=== PATIENT | female | born 1985 | race Caucasian/White ===

== ENCOUNTER 2017-12-17 22:33 | Observation (INO) | payer MEDICAID ==
[2017-12-17] MEDS: NORMAL SALINE 1000 ML 1,000 ML IV PRN ×2 (23:00→23:47)
--- NOTE | 2017-12-17 23:13 | ER Document Report ---
ED General - General Chief Complaint: Abdominal Pain Stated Complaint: ABDOMINAL PAIN Time Seen by Provider: 12/17/17 23:13 Mode of Arrival: Ambulatory Information source: Patient Notes: 32-year-old lady with past medical history of kidney stones who presented today for evaluation of fever, left flank pain, right upper quadrant pain associated with nausea as well as vomiting. Her symptoms started approximately 2 days ago. Patient reported urinary burning and frequency prior to her symptoms. Patient did not notice any hematuria. Patient is allergic to penicillin. Pain is achy, constant, localized to the left flank as well as right upper quadrant, severity of symptoms a 6 out of 10. Patient took Motrin with improvement of her fever but not pain. TRAVEL OUTSIDE OF THE [place] IN LAST 30 DAYS: No - Related Data Allergies/Adverse Reactions: Penicillins Allergy (Verified 12/17/17 22:37) Past Medical History - General Information source: Patient - Social History Smoking Status: Never Smoker Frequency of alcohol use: Occasional Drug Abuse: None Family History: None Patient has suicidal ideation: No Patient has homicidal ideation: No Renal/ Medical History: Denies: Hx Peritoneal Dialysis Review of Systems - Review of Systems Notes: REVIEW OF SYSTEMS: CONSTITUTIONAL: + Fevers, + chills EENT: -eye pain, -difficulty swallowing, -nasal congestion CARDIOVASCULAR: -chest pain, -syncope. RESPIRATORY: -cough, -SOB GASTROINTESTINAL: + Abdominal pain, + nausea, + vomiting, -diarrhea GENITOURINARY: -dysuria, -hematuria MUSCULOSKELETAL: + Back pain, -neck pain SKIN: -rash or skin lesions. HEMATOLOGIC: -easy bruising or bleeding. LYMPHATIC: -swollen, enlarged glands. NEUROLOGICAL: -altered mental status or loss of consciousness, -headache, - neurologic symptoms PSYCHIATRIC: -anxiety, -depression. ALL OTHER SYSTEMS REVIEWED AND NEGATIVE. Physical Exam - Vital signs Vitals: Temp Pulse Resp BP Pulse Ox 98.4 F 147 H 20 134/83 H 95 12/17/17 22:49 12/17/17 22:49 12/17/17 22:49 12/17/17 22:49 12/17/17 22:49 - Notes Notes: Reviewed vital signs and nursing note as charted by RN. CONSTITUTIONAL: Alert and oriented and responds appropriately to questions HEAD: Normocephalic; atraumatic EYES: PERRL; Conjunctivae clear, sclerae non-icteric ENT: normal nose; no rhinorrhea; moist mucous membranes; pharynx without lesions noted NECK: Supple without meningismus; non-tender; no cervical lymphadenopathy, no masses CARD: Tachycardia; no murmurs, no clicks, no rubs, no gallops; symmetric distal pulses RESP: Normal chest excursion without splinting or tachypnea; breath sounds clear and equal bilaterally ABD/GI: Normal bowel sounds; non-distended; soft, tenderness to palpation of her right upper quadrant as well as left CVA tenderness BACK: The back appears normal and is non-tender to palpation, left CVA tenderness EXT: Normal ROM in all joints; non-tender to palpation; no cyanosis, no effusions, no edema SKIN: Skin feels warm and clammy NEURO: Cranial nerves 3-12 intact. Motor strength 5/5 bilaterally. Sensation intact to touch bilaterally. No pronator drift. Finger to nose intact bilaterally PSYCH: The patient's mood and manner are appropriate. Grooming and personal hygiene are appropriate. Course - Re-evaluation Re-evalutation: 32 here for evaluation of nausea, vomiting as well as fevers and left flank pain and right upper quadrant pain Differential diagnoses include sepsis, infected stone, acute cystitis, pyelonephritis, possible acute cholecystitis given her right upper quadrant abdominal pain We will obtain basic lab work including CBC, CMP, blood cultures, lactic acid level We will give patient IV fluids 2 L, IV Levaquin CT abdomen pelvis without contrast Pain control with Stendal Reassess patient 12/17/17 23:42 Patient has acute leukocytosis as well as hyperglycemia Urinalysis did not reveal any evidence of acute pyelonephritis or cystitis, patient has hematuria Given her persistent leukocytosis concern for possible acute cholecystitis given that she had right upper quadrant abdominal pain, therefore will obtain imaging of her gallbladder and liver 12/18/17 04:31 Gallbladder did not reveal any acute evidence of cholecystitis, no biliary dilatation or gallbladder wall thickening, otherwise normal ultrasound Upon reassessment of the patient she appears to be slightly tachycardic as well as complains of persistent nausea Patient does not feel comfortable going home I have offered patient admission and she agreed I have gotten in contact with hospitalist on-call, Dr. Crump, he agree with admission for observation Admit patient - Vital Signs Vital signs: Temp Pulse Resp BP Pulse Ox 98.4 F 101 H 18 138/73 H 100 05/22/18 22:49 12/18/17 02:00 12/18/17 02:00 12/18/17 02:00 12/18/17 02:00 - Laboratory Result Diagrams: 12/17/17 23:10 12/17/17 23:10 Laboratory results interpreted by me: 12/17/17 12/17/17 12/18/17 23:10 23:10 00:15 WBC 18.9 H Seg Neutrophils % 89.0 H Lymphocytes % 6.8 L Absolute Neutrophils 16.9 H Glucose 157 H AST 39 H Urine Blood SMALL H Ur Leukocyte Esterase TRACE H Critical Care Note - Critical Care Note Comments: Critical Care Time: 35 minutes Critical care provider statement: Critical care time was exclusive of: Separately billable procedures and treating other patients and teaching time Critical care was time spent personally by me on the following activities: Blood draw for specimens, development of treatment plan with patient or surrogate, evaluation of patient's response to treatment, examination of patient , obtaining history from patient or surrogate, ordering and performing treatments and interventions, ordering and review of laboratory studies, ordering and review of radiographic studies, pulse oximetry, re-evaluation of patient's condition and review of old charts I assumed direction of critical care for this patient from another provider in my specialty: no Discharge - Discharge Clinical Impression: Sepsis Qualifiers: Sepsis type: sepsis due to unspecified organism Qualified Code(s): A41.9 - Sepsis, unspecified organism Abdominal pain Qualifiers: Abdominal location: generalized Qualified Code(s): R10.84 - Generalized abdominal pain Fever Qualifiers: Fever type: unspecified Qualified Code(s): R50.9 - Fever, unspecified Condition: Stable Admitting Provider: Hospitalist Unit Admitted: Telemetry Referrals: EDYTA COTTON FNP-C [Primary Care Provider] - Follow up as needed
[2017-12-17] MEDS ORDERED: LEVOFLOXACIN 750 MG/D5W RTU 750 MG/150 ML RTUPB IV ONE (23:15)
[2017-12-17] MEDS ORDERED: HYDROCODONE/ACETAMINOPHEN 5-325 MG TABLET PO ONE (23:27)
[2017-12-17 23:28] LABS: ABSOLUTE EOSINOPHILS # (AUTO) 0.1 10^3/uL (0.0-0.6); ABSOLUTE LYMPHOCYTES (AUTO) 1.3 10^3/uL (0.5-4.7); ABSOLUTE MONOCYTES (AUTO) 0.7 10^3/uL (0.1-1.4); ABSOLUTE NEUT (AUTO) 16.9 10^3/uL (1.7-8.2); BASOPHILS % (AUTO) 0.3 % (0-2); EOSINOPHILS % (AUTO) 0.4 % (0-6); HEMATOCRIT 43.3 % (36.0-47.0); HEMOGLOBIN 14.7 g/dL (12.0-15.5); LYMPHOCYTES % (AUTO) 6.8 % (13-45); MEAN CORPUSCULAR HEMOGLOBIN 31.1 pg (27.0-33.4); MEAN CORPUSCULAR HGB CONC 33.9 g/dL (32.0-36.0); MEAN CORPUSCULAR VOLUME 92 fl (80-97); MONOCYTES % (AUTO) 3.5 % (3-13); PLATELET COUNT 364 10^3/uL (150-450); RED BLOOD COUNT 4.72 10^6/uL (3.72-5.28); RED CELL DISTRIBUTION WIDTH 13.3 % (11.5-14.0); TOTAL CELLS COUNTED % (AUTO) 100 %; WHITE BLOOD COUNT 18.9 10^3/uL (4.0-10.5)
[2017-12-17 23:35] LABS: ALANINE AMINOTRANSFERASE 35 U/L (9-52); ALBUMIN 4.5 g/dL (3.5-5.0); ALKALINE PHOSPHATASE 91 U/L (38-126); ANION GAP 13 (5-19); ASPARTATE AMINO TRANSFERASE 39 U/L (14-36); BILIRUBIN,DIRECT 0.4 mg/dL (0.0-0.4); BILIRUBIN,TOTAL 0.6 mg/dL (0.2-1.3); BLOOD UREA NITROGEN 12 mg/dL (7-20); CALCIUM 9.6 mg/dL (8.4-10.2); CARBON DIOXIDE 24 mmol/L (22-30); CHLORIDE 104 mmol/L (98-107); GLUCOSE 157 mg/dL (75-110); POTASSIUM 4.1 mmol/L (3.6-5.0); SODIUM 140.5 mmol/L (137-145); TOTAL PROTEIN 8.1 g/dL (6.3-8.2)
[2017-12-18 00:29] LABS: APPEARANCE,URINE CLEAR; BILIRUBIN,URINE NEGATIVE (NEGATIVE); COLOR,URINE STRAW; GLUCOSE, URINE NEGATIVE (NEGATIVE); KETONES,URINE NEGATIVE (NEGATIVE); LEUKOCYTE ESTERASE,URINE TRACE (NEGATIVE); NITRITE,URINE NEGATIVE (NEGATIVE); PROTEIN,URINE NEGATIVE (NEGATIVE); URINE SPECIFIC GRAVITY 1.008; UROBILINOGEN,URINE NEGATIVE mg/dL (<2.0)
--- NOTE | 2017-12-18 02:04 | RADIOLOGY REPORT (SQ) ---
EXAM DESCRIPTION: CT ABDOMEN PELVIS WITHOUT IV CONTRAST CLINICAL HISTORY: 32 years Female, kidney stone Comparison: None. Technique: No contrast. Coronal and sagittal reformat. This exam was performed according to our departmental dose-optimization program, which includes automated exposure control, adjustment of the mA and/or kV according to patient size and/or use of iterative reconstruction technique.[facility]: Dose Right [facility]: CareDose [facility]: Dose Right [facility]: Teradose 4D [facility]: Stakeforce LIMITATIONS: None. Findings: Moderate hepatic steatosis. 0.2 cm uncomplicated right renal stone. Normal appendix. Small L5-S1 disc bulge. Unenhanced lower thorax, abdominopelvic structures, and musculoskeleton appear otherwise grossly unremarkable. Impression: No acute findings. Moderate hepatic steatosis. 0.2 cm uncomplicated right renal stone.
--- NOTE | 2017-12-18 02:47 | RADIOLOGY REPORT (SQ) ---
EXAM DESCRIPTION: US ABDOMEN LIMITED CLINICAL HISTORY: 32 years Female, RUQ pain, acute sylvia Comparison: CT, same day LIMITATIONS: None. FINDINGS: Gallbladder, negative sonographic Field's test, moderate hepatic steatosis, a 0.4-cm diameter common bile duct, no intrahepatic ductal dilation, 11-cm right kidney, partially obscured pancreas, visualized vasculature/abdominal aorta, and no significant ascites appear otherwise unremarkable. IMPRESSION: No acute findings. Hepatic steatosis.
[2017-12-18] MEDS ORDERED: NORMAL SALINE 1000 ML 1,000 ML IV ONE (04:02)
[2017-12-18] MEDS ORDERED: OXYCODONE HCL IR 5 MG TABLET PO ONE (04:02)
[2017-12-18] MEDS ORDERED: MAG HYDROX/AL HYDROX/SIMETH SUSP 30 ML UDCUP PO PRN (04:30)
[2017-12-18] MEDS ORDERED: IPRATROPIUM/ALBUTEROL 0.5-2.5 MG/3 ML AMPUL NEB PRN (04:30)
[2017-12-18] MEDS ORDERED: LACTULOSE SYRUP 20 GM/30 ML UDCUP PO ONE (04:30)
[2017-12-18] MEDS ORDERED: MAGNESIUM HYDROXIDE SUSP 30 ML UDCUP PO PRN (04:30)
[2017-12-18] MEDS ORDERED: METRONIDAZOLE 500 MG TABLET PO ONE (05:00)
[2017-12-18 05:36] LABS: ALANINE AMINOTRANSFERASE 34 U/L (9-52); ALBUMIN 3.3 g/dL (3.5-5.0); ALKALINE PHOSPHATASE 60 U/L (38-126); ANION GAP 10 (5-19); ASPARTATE AMINO TRANSFERASE 22 U/L (14-36); BILIRUBIN,DIRECT 0.3 mg/dL (0.0-0.4); BILIRUBIN,TOTAL 0.4 mg/dL (0.2-1.3); BLOOD UREA NITROGEN 11 mg/dL (7-20); CALCIUM 8.3 mg/dL (8.4-10.2); CARBON DIOXIDE 24 mmol/L (22-30); CHLORIDE 109 mmol/L (98-107); GLUCOSE 103 mg/dL (75-110); LIPASE 60.6 U/L (23-300); POTASSIUM 4.1 mmol/L (3.6-5.0); SODIUM 143.3 mmol/L (137-145)
[2017-12-18] MEDS: HEPARIN SOD (PORCINE) 5,000 UNIT/ML 1 ML SYRINGE SUBCUT SCH ×3 (06:22→22:04)
[2017-12-18] MEDS: NORMAL SALINE 1000 ML 1,000 ML IV SCH ×2 (06:46→15:23)
--- NOTE | 2017-12-18 06:56 | PDOC H&P ---
History of Present Illness Admission Date/PCP: 12/18/17 04:48 FRANCISCO JAVIER FERGUSONC Patient complains of: Abdominal pain History of Present Illness: KRUNAL PATRICK is a 32 year old female with a past medical history of hepatic steatosis, Morbid obesity and nephrolithiasis. Patient presents with 48 hours of left-sided abdominal pain which radiated to the groin then developed right upper quadrant pain associated bloating, flatus, nausea and vomiting 1 of gastric content. Patient developed a fever of 102.5 prompting evaluation emergency room. Her workup is notable for leukocytosis of 19,000, unremarkable LFTs, noncontrasted CT showing moderate hepatic steatosis, 0.2 cm uncomplicated right renal stone, a normal appendix and moderate fecal retention. She is treated empirically with IV fluid and Levaquin then referred to the hospitalist for admission. Patient denies dysuria or back pain Social History Information Source: Patient Lives with: Family Smoking Status: Never Smoker Frequency of Alcohol Use: None Hx Recreational Drug Use: No Drugs: None Hx Prescription Drug Abuse: No - Advance Directive Resuscitation Status: Full Code Family History Family History: None Parental Family History Reviewed: Yes Children Family History Reviewed: Yes Sibling(s) Family History Reviewed.: Yes Medication/Allergy Allergies/Adverse Reactions: Penicillins Allergy (Verified 12/17/17 22:37) Review of Systems Constitutional: ABSENT: chills, fever(s), headache(s), weight gain, weight loss Eyes: ABSENT: visual disturbances Ears: ABSENT: hearing changes Cardiovascular: ABSENT: chest pain, dyspnea on exertion, edema, orthropnea, palpitations Respiratory: ABSENT: cough, hemoptysis Gastrointestinal: ABSENT: abdominal pain, constipation, diarrhea, hematemesis, hematochezia, nausea, vomiting Genitourinary: ABSENT: dysuria, hematuria Musculoskeletal: ABSENT: joint swelling Integumentary: ABSENT: rash, wounds Neurological: ABSENT: abnormal gait, abnormal speech, confusion, dizziness, focal weakness, syncope Psychiatric: ABSENT: anxiety, depression, homidical ideation, suicidal ideation Endocrine: ABSENT: cold intolerance, heat intolerance, polydipsia, polyuria Hematologic/Lymphatic: ABSENT: easy bleeding, easy bruising Physical Exam Vital Signs: Temp Pulse Resp BP Pulse Ox 98.0 F 98 16 117/78 99 12/18/17 05:52 12/18/17 05:52 12/18/17 05:52 12/18/17 05:52 12/18/17 05:52 Intake & Output 12/16/17 12/17/17 12/18/17 11:59 11:59 11:59 Weight 120.9 kg General appearance: PRESENT: no acute distress, well-developed, well-nourished Head exam: PRESENT: atraumatic, normocephalic Eye exam: PRESENT: conjunctiva pink, EOMI, PERRLA. ABSENT: scleral icterus Ear exam: PRESENT: normal external ear exam Mouth exam: PRESENT: moist, tongue midline Neck exam: ABSENT: carotid bruit, JVD, lymphadenopathy, thyromegaly Respiratory exam: PRESENT: clear to auscultation tan. ABSENT: rales, rhonchi, wheezes Cardiovascular exam: PRESENT: RRR. ABSENT: diastolic murmur, rubs, systolic murmur Pulses: PRESENT: normal dorsalis pedis pul Vascular exam: PRESENT: normal capillary refill GI/Abdominal exam: PRESENT: diminished bowel sounds, distended, hypoactive bowel sounds, normal bowel sounds, soft, tenderness - Diffuse abdominal pain without guarding. ABSENT: firm, guarding, mass, organolmegaly, rebound Rectal exam: PRESENT: deferred Extremities exam: PRESENT: full ROM. ABSENT: calf tenderness, clubbing, pedal edema Neurological exam: PRESENT: alert, awake, oriented to person, oriented to place , oriented to time, oriented to situation, CN II-XII grossly intact. ABSENT: motor sensory deficit Psychiatric exam: PRESENT: appropriate affect, normal mood. ABSENT: homicidal ideation, suicidal ideation Skin exam: PRESENT: dry, intact, warm. ABSENT: cyanosis, rash Results Laboratory Results: 12/18/17 05:10 12/18/17 12/18/17 05:10 05:10 Sodium 143.3 Potassium 4.1 Chloride 109 H Carbon Dioxide 24 Anion Gap 10 BUN 11 Creatinine 0.54 Est GFR ( Amer) > 60 Est GFR (Non-Af Amer) > 60 Glucose 103 Lactic Acid 0.8 Calcium 8.3 L Total Bilirubin 0.4 AST 22 ALT 34 Alkaline Phosphatase 60 Total Protein 6.0 L Albumin 3.3 L Lipase 60.6 Impressions: Abdomen Ultrasound 12/18/17 00:40 IMPRESSION: No acute findings. Hepatic steatosis. Assessment & Plan - Diagnosis (1) Abdominal pain Qualifiers: Abdominal location: generalized Qualified Code(s): R10.84 - Generalized abdominal pain Is this a current diagnosis for this admission?: Yes Plan: Unclear patient complains of abdominal pain associated with flatus, fecal impaction versus cholecystitis versus early diverticulitis. Bowel rest, empiric antibiotics, follow-up CBC and LFTs. Consider surgical consult (2) Fever Qualifiers: Fever type: unspecified Qualified Code(s): R50.9 - Fever, unspecified Is this a current diagnosis for this admission?: Yes Plan: See #1, Tylenol as needed
[2017-12-18] MEDS ORDERED: ONDANSETRON HCL INJ/PF 4 MG/2 ML SDV IV PRN (08:42)
[2017-12-18] MEDS ORDERED: ONDANSETRON HCL INJ/PF 4 MG/2 ML SDV ONE (08:51)
[2017-12-18 09:00] LABS: ABSOLUTE EOSINOPHILS # (AUTO) 0.1 10^3/uL (0.0-0.6); ABSOLUTE MONOCYTES (AUTO) 0.9 10^3/uL (0.1-1.4); ABSOLUTE NEUT (AUTO) 11.2 10^3/uL (1.7-8.2); BASOPHILS % (AUTO) 0.3 % (0-2); EOSINOPHILS % (AUTO) 0.5 % (0-6); HEMATOCRIT 38.3 % (36.0-47.0); HEMOGLOBIN 12.8 g/dL (12.0-15.5); LYMPHOCYTES % (AUTO) 14.1 % (13-45); MEAN CORPUSCULAR HEMOGLOBIN 30.9 pg (27.0-33.4); MEAN CORPUSCULAR HGB CONC 33.4 g/dL (32.0-36.0); MEAN CORPUSCULAR VOLUME 93 fl (80-97); MONOCYTES % (AUTO) 6.3 % (3-13); PLATELET COUNT 292 10^3/uL (150-450); RED BLOOD COUNT 4.14 10^6/uL (3.72-5.28); RED CELL DISTRIBUTION WIDTH 13.3 % (11.5-14.0); SEGMENTED NEUTROPHILS % (AUTO) 78.8 % (42-78); TOTAL CELLS COUNTED % (AUTO) 100 %; WHITE BLOOD COUNT 14.2 10^3/uL (4.0-10.5)
[2017-12-18] MEDS ORDERED: ONDANSETRON 4 MG TAB.RAPDIS PO PRN ×2 (09:05→09:30)
[2017-12-18 09:34] LABS: ALANINE AMINOTRANSFERASE 34 U/L (9-52); ALBUMIN 3.6 g/dL (3.5-5.0); ALKALINE PHOSPHATASE 69 U/L (38-126); ANION GAP 13 (5-19); ASPARTATE AMINO TRANSFERASE 22 U/L (14-36); BILIRUBIN,DIRECT 0.2 mg/dL (0.0-0.4); BILIRUBIN,TOTAL 0.4 mg/dL (0.2-1.3); BLOOD UREA NITROGEN 9 mg/dL (7-20); CALCIUM 8.5 mg/dL (8.4-10.2); CARBON DIOXIDE 19 mmol/L (22-30); CHLORIDE 108 mmol/L (98-107); GLUCOSE 113 mg/dL (75-110); POTASSIUM 3.8 mmol/L (3.6-5.0); TOTAL PROTEIN 6.4 g/dL (6.3-8.2)
[2017-12-18] MEDS: CIPROFLOXACIN 400 MG/D5W RTU 400 MG/200 ML RTUPB IV SCH ×2 (10:22→22:04)
[2017-12-18] MEDS: METRONIDAZOLE 500 MG TABLET PO SCH ×2 (12:41→17:42)
[2017-12-18] MEDS: ACETAMINOPHEN 325 MG TABLET PO PRN ×2 (12:41→22:04)
[2017-12-18] MEDS: LACTULOSE SYRUP 20 GM/30 ML UDCUP PO SCH ×2 (15:23→22:04)
--- NOTE | 2017-12-18 19:16 | PDOC PROGRESS REPORT ---
Subjective Progress Note for:: 12/18/17 Subjective:: I the patient states that she is feeling a little better this afternoon. She was nauseated and had an episode of vomiting this morning. She states her abdominal pain is improving but she has not yet had a bowel movement. She is passing gas. She has had no fever or chills. No chest pain or heart palpitations. She does state that she has flank pain in her kidney area every time she urinates. She states it is quite severe. Reason For Visit: ABD PAIN COLITIS Physical Exam Vital Signs: Temp Pulse Resp BP Pulse Ox 98.1 F 104 H 16 126/63 H 95 12/18/17 16:00 12/18/17 18:12 12/18/17 18:12 12/18/17 16:00 12/18/17 18:12 Intake & Output 12/17/17 12/18/17 12/19/17 06:59 06:59 06:59 Intake Total 1764 Output Total 2800 Balance -1036 Weight 120.9 kg General appearance: PRESENT: no acute distress, morbidly obese, well-developed, well-nourished Head exam: PRESENT: atraumatic, normocephalic Mouth exam: PRESENT: moist, tongue midline Neck exam: ABSENT: carotid bruit, JVD, lymphadenopathy, thyromegaly Respiratory exam: PRESENT: clear to auscultation tan. ABSENT: rales, rhonchi, wheezes Cardiovascular exam: PRESENT: RRR. ABSENT: diastolic murmur, rubs, systolic murmur Pulses: PRESENT: normal dorsalis pedis pul GI/Abdominal exam: PRESENT: hypoactive bowel sounds, soft, tenderness. ABSENT: distended, guarding, mass, organolmegaly, rebound Rectal exam: PRESENT: deferred Extremities exam: PRESENT: full ROM. ABSENT: calf tenderness, clubbing, pedal edema Musculoskeletal exam: PRESENT: ambulatory Neurological exam: PRESENT: alert, awake, oriented to person, oriented to place , oriented to time, oriented to situation, CN II-XII grossly intact. ABSENT: motor sensory deficit Psychiatric exam: PRESENT: appropriate affect, normal mood. ABSENT: homicidal ideation, suicidal ideation Skin exam: PRESENT: dry, intact, warm. ABSENT: cyanosis, rash Results Laboratory Results: 12/18/17 08:45 12/18/17 08:45 12/18/17 12/18/17 12/18/17 05:10 05:10 08:45 WBC 14.2 H RBC 4.14 Hgb 12.8 Hct 38.3 MCV 93 MCH 30.9 MCHC 33.4 RDW 13.3 Plt Count 292 Seg Neutrophils % 78.8 H Lymphocytes % 14.1 Monocytes % 6.3 Eosinophils % 0.5 Basophils % 0.3 Absolute Neutrophils 11.2 H Absolute Lymphocytes 2.0 Absolute Monocytes 0.9 Absolute Eosinophils 0.1 Absolute Basophils 0.0 Sodium 143.3 Potassium 4.1 Chloride 109 H Carbon Dioxide 24 Anion Gap 10 BUN 11 Creatinine 0.54 Est GFR ( Amer) > 60 Est GFR (Non-Af Amer) > 60 Glucose 103 Lactic Acid 0.8 Calcium 8.3 L Magnesium Total Bilirubin 0.4 AST 22 ALT 34 Alkaline Phosphatase 60 Total Protein 6.0 L Albumin 3.3 L Lipase 60.6 12/18/17 08:45 WBC RBC Hgb Hct MCV MCH MCHC RDW Plt Count Seg Neutrophils % Lymphocytes % Monocytes % Eosinophils % Basophils % Absolute Neutrophils Absolute Lymphocytes Absolute Monocytes Absolute Eosinophils Absolute Basophils Sodium 140.0 Potassium 3.8 Chloride 108 H Carbon Dioxide 19 L Anion Gap 13 BUN 9 Creatinine 0.46 L Est GFR ( Amer) > 60 Est GFR (Non-Af Amer) > 60 Glucose 113 H Lactic Acid Calcium 8.5 Magnesium 1.7 Total Bilirubin 0.4 AST 22 ALT 34 Alkaline Phosphatase 69 Total Protein 6.4 Albumin 3.6 Lipase Impressions: Abdomen Ultrasound 12/18/17 00:40 IMPRESSION: No acute findings. Hepatic steatosis. Assessment & Plan - Diagnosis (1) Constipation Is this a current diagnosis for this admission?: Yes Plan: Continue lactulose. She has not yet had a bowel movement. (2) Abdominal pain Is this a current diagnosis for this admission?: Yes Plan: She is being empirically treated for possible colitis or diverticulitis. She states her abdominal pain has improved. Her abdominal pain could be due to constipation. She also has a history of kidney stones in the past. She does have flank pain when she urinates. There is no blood in her urine. CT scan of the abdomen and pelvis did reveal a 0.2 mm uncomplicated renal stone. (3) Leukocytosis Is this a current diagnosis for this admission?: Yes Plan: She will have a CBC drawn in the morning. Possibly reactive to her whole situation (4) Morbid obesity Is this a current diagnosis for this admission?: Yes Plan: Certainly she would benefit from weight loss. Dietary discretion is advised. Her BMI is 50.4 - Time Time Spent with patient: 25-34 minutes - Inpatient Certification Medical Necessity: Other - Inpatient hospitalization remains necessary. We will keep the patient in the hospital on parenteral antibiotics. We will see if we can get her to have a bowel movement. Timing of disposition will be determined by her clinical course
[2017-12-19] MEDS: METRONIDAZOLE 500 MG TABLET PO SCH ×4 (01:11→17:47)
[2017-12-19 05:01] LABS: ABSOLUTE BASOPHILS # (AUTO) 0.1 10^3/uL (0.0-0.2); ABSOLUTE EOSINOPHILS # (AUTO) 0.2 10^3/uL (0.0-0.6); ABSOLUTE LYMPHOCYTES (AUTO) 2.6 10^3/uL (0.5-4.7); ABSOLUTE MONOCYTES (AUTO) 0.8 10^3/uL (0.1-1.4); BASOPHILS % (AUTO) 0.6 % (0-2); EOSINOPHILS % (AUTO) 1.5 % (0-6); LYMPHOCYTES % (AUTO) 22.3 % (13-45); MEAN CORPUSCULAR HEMOGLOBIN 30.7 pg (27.0-33.4); MEAN CORPUSCULAR HGB CONC 33.2 g/dL (32.0-36.0); MEAN CORPUSCULAR VOLUME 93 fl (80-97); MONOCYTES % (AUTO) 6.9 % (3-13); PLATELET COUNT 284 10^3/uL (150-450); RED BLOOD COUNT 4.22 10^6/uL (3.72-5.28); RED CELL DISTRIBUTION WIDTH 13.1 % (11.5-14.0); SEGMENTED NEUTROPHILS % (AUTO) 68.7 % (42-78); TOTAL CELLS COUNTED % (AUTO) 100 %; WHITE BLOOD COUNT 11.6 10^3/uL (4.0-10.5)
[2017-12-19 05:23] LABS: ANION GAP 10 (5-19); BLOOD UREA NITROGEN 6 mg/dL (7-20); CALCIUM 8.8 mg/dL (8.4-10.2); CARBON DIOXIDE 24 mmol/L (22-30); CHLORIDE 109 mmol/L (98-107); GLUCOSE 87 mg/dL (75-110); POTASSIUM 3.9 mmol/L (3.6-5.0); SODIUM 143.3 mmol/L (137-145)
[2017-12-19] MEDS: LACTULOSE SYRUP 20 GM/30 ML UDCUP PO SCH ×2 (05:27→13:24)
[2017-12-19] MEDS: HEPARIN SOD (PORCINE) 5,000 UNIT/ML 1 ML SYRINGE SUBCUT SCH ×2 (05:28→13:38)
[2017-12-19] MEDS: ACETAMINOPHEN 325 MG TABLET PO PRN ×2 (06:46→15:48)
[2017-12-19] MEDS: CIPROFLOXACIN 400 MG/D5W RTU 400 MG/200 ML RTUPB IV SCH (09:22)
[2017-12-19 18:10] VITALS: BP 126/63
--- NOTE | 2017-12-19 18:44 | PDOC DISCHARGE SUMMARY ---
General - Admit/Disc Date/PCP Admission Date/Primary Care Provider: 12/18/17 04:48 GAGANDEEP FERGUSON-Evgeny Discharge Date: 12/19/17 - Discharge Diagnosis (1) Constipation Is this a current diagnosis for this admission?: Yes Summary: Resolved. She was given multiple doses of lactulose and finally began to have bowel movements. I recommend she taken over the counter stool softener going forward. (2) Abdominal pain Is this a current diagnosis for this admission?: Yes Summary: The patient had abdominal pain but also had a fever of 102 before she came to the hospital. CT scan of the abdomen and pelvis revealed a fatty liver but no evidence of colitis or diverticulitis. She did have a markedly elevated white blood cell count which is since resolved. She was empirically placed on IV Cipro and Flagyl. Did discuss this with her and her . We are going to complete a one-week course of therapy at discharge. If she develops further abdominal pain would recommend a GI workup. (3) Leukocytosis Is this a current diagnosis for this admission?: Yes Summary: Resolved. Of undetermined significance at this point. Possibly due to underlying infection versus reactive to severe constipation (4) Morbid obesity Is this a current diagnosis for this admission?: Yes Summary: Dietary discretion is advised. - Additional Information Resuscitation Status: Full Code Discharge Diet: Regular Discharge Activity: Activity As Tolerated, Balance Activity w/Rest, Slowly Increase Activity Prescriptions: Ondansetron [Zofran Odt 4 mg Tablet] 4 mg PO Q6HP PRN #30 tab.rapdis PRN Reason: For Nausea/Vomiting Ciprofloxacin HCl [Cipro 500 mg Tablet] 500 mg PO BID #12 tablet Metronidazole [Flagyl 500 mg Tablet] 500 mg PO Q8 #18 tablet Home Medications: Fluticasone Propionate [Flonase Nasal Bowie 50 Mcg/Bowie 16 gm] 1 spray NASL DAILY 12/18/17 Loratadine [Claritin] 10 mg PO DAILY 12/18/17 Ciprofloxacin HCl [Cipro 500 mg Tablet] 500 mg PO BID #12 tablet 12/19/17 Metronidazole [Flagyl 500 mg Tablet] 500 mg PO Q8 #18 tablet 12/19/17 Ondansetron [Zofran Odt 4 mg Tablet] 4 mg PO Q6HP PRN #30 tab.rapdis 12/19/17 History of Present Illness History of Present Illness: KRUNAL PATRICK is a 32 year old female who presented to the emergency room with abdominal pain and fever. Hospital Course Hospital Course: She was in her usual state of health but on the day of admission started feeling quite poorly. She developed worsening abdominal pain. When her got home from work that day he took her temperature and she had a temperature over 102. She was brought to the hospital for further evaluation. She had a CT scan of the abdomen and pelvis which revealed evidence of a fatty liver. No evidence of colitis or diverticulitis. She was noted to have a large stool burden throughout the colon. She also had a very small 2 mm stone in the right kidney. She did have an elevated white blood cell count of 18.9 at the time of admission. She was admitted to the hospital and empirically started on IV Cipro and Flagyl. She was treated aggressively for her constipation. Over the course of the hospitalization the patient began to improve. Her white blood cell count is almost back to normal and her abdominal pain is resolved. She has had multiple bowel movements now is feeling much improved. At this point it is felt that she can safely be discharged home with close outpatient follow-up. We will get her an appointment to follow-up with her primary care physician. Certainly this patient would benefit from losing weight and would recommend continued discussions with her to help her develop a plan that works for her. At this point maximum hospital benefits been reached. The patient will be discharged home today in stable condition. Physical Exam Vital Signs: Temp Pulse Resp BP Pulse Ox 98.2 F 87 18 126/63 H 97 12/19/17 18:18 12/19/17 18:18 12/19/17 18:18 12/19/17 18:18 12/19/17 18:18 Intake & Output 12/18/17 12/19/17 12/20/17 06:59 06:59 06:59 Intake Total 2664 968 Output Total 3575 Balance -911 968 Weight 120.9 kg 120.9 kg General appearance: PRESENT: no acute distress, morbidly obese, well-developed, well-nourished Head exam: PRESENT: atraumatic, normocephalic Eye exam: PRESENT: conjunctiva pink, EOMI, PERRLA. ABSENT: scleral icterus Ear exam: PRESENT: normal external ear exam Mouth exam: PRESENT: moist, tongue midline Neck exam: ABSENT: carotid bruit, JVD, lymphadenopathy, thyromegaly Respiratory exam: PRESENT: clear to auscultation tan. ABSENT: rales, rhonchi, wheezes Cardiovascular exam: PRESENT: RRR. ABSENT: diastolic murmur, rubs, systolic murmur Pulses: PRESENT: normal dorsalis pedis pul GI/Abdominal exam: PRESENT: normal bowel sounds, soft. ABSENT: distended, guarding, mass, organolmegaly, rebound, tenderness Rectal exam: PRESENT: deferred Extremities exam: PRESENT: full ROM. ABSENT: calf tenderness, clubbing, pedal edema Musculoskeletal exam: PRESENT: ambulatory Neurological exam: PRESENT: alert, awake, oriented to person, oriented to place , oriented to time, oriented to situation, CN II-XII grossly intact. ABSENT: motor sensory deficit Psychiatric exam: PRESENT: appropriate affect, normal mood. ABSENT: homicidal ideation, suicidal ideation Skin exam: PRESENT: dry, intact, warm. ABSENT: cyanosis, rash Results Laboratory Results: 12/19/17 03:55 12/19/17 03:55 12/19/17 12/19/17 03:55 03:55 WBC 11.6 H RBC 4.22 Hgb 13.0 Hct 39.0 MCV 93 MCH 30.7 MCHC 33.2 RDW 13.1 Plt Count 284 Seg Neutrophils % 68.7 Lymphocytes % 22.3 Monocytes % 6.9 Eosinophils % 1.5 Basophils % 0.6 Absolute Neutrophils 8.0 Absolute Lymphocytes 2.6 Absolute Monocytes 0.8 Absolute Eosinophils 0.2 Absolute Basophils 0.1 Sodium 143.3 Potassium 3.9 Chloride 109 H Carbon Dioxide 24 Anion Gap 10 BUN 6 L Creatinine 0.54 Est GFR ( Amer) > 60 Est GFR (Non-Af Amer) > 60 Glucose 87 Calcium 8.8 Impressions: Abdomen Ultrasound 12/18/17 00:40 IMPRESSION: No acute findings. Hepatic steatosis. Qualifiers - * PATIENT BEING DISCHARGED WITH ANY OF THE FOLLOWING DIAGNOSIS: No Plan Time Spent: Greater than 30 Minutes
== END 2017-12-19 18:28 | disposition home or self-care (01) ==
LOC: ER 22:33 → EH 12-18 04:48 → 4N 12-18 05:49
PROVIDERS: ADMIT Internal Medicine; ATTEND Internal Medicine
DX: R10.84 Generalized abdominal pain (principal); K59.00 Constipation, unspecified; R50.9 Fever, unspecified; D72.829 Elevated white blood cell count, unspecified; E66.01 Morbid (severe) obesity due to excess calories; Z68.43 Body mass index [BMI] 50.0-59.9, adult; K76.0 Fatty (change of) liver, not elsewhere classified; N20.0 Calculus of kidney; R11.2 Nausea with vomiting, unspecified; R31.9 Hematuria, unspecified
CPT/HCPCS: 99291; 96361; 96365; 36415 ×3; 87040 ×2; 87086; 83690; 83735; 85025 ×3; 81025; 80076; 80048 ×2; 80053 ×2; 81001; 83605 ×2; 76705; 74176; G0378 ×3; J3490 ×7; J1644 ×2; J2405; J7030 ×2; J0744 ×2; J1956

== ENCOUNTER 2018-01-13 09:20 | Day surgery (SDC) | payer MEDICAID ==
[~2018-01-13 09:20] MED LIST: PROPOFOL INJ 200 MG/20 ML VIAL IV ONE
[2018-01-13 10:46] VITALS: BP 107/68
--- NOTE | 2018-01-13 12:02 | Operative Report ---
Operative Report DATE OF SURGERY: 01/13/18 Operative Report: The risks, benefits and alternatives of the procedure including risk of bleeding , perforation requiring surgery are explained to the patient in detail and informed consent was obtained. Patient is taken back to the endoscopy suite and placed in the left, lateral decubital position. Timeout was called. Propofol medications administered. A rectal examination is done which did not reveal any masses, tears or fissures. An Olympus video scope was inserted into the patient's rectum. The scope was then carefully advanced all the way to the cecum. The cecum was identified by the usual anatomical landmarks including the ileocecal valve as well as the appendiceal office. Photodocumentation was obtained. The scope was then sequentially pulled back via the various segments of the colon including the ascending colon, hepatic flexure, transverse colon, splenic flexure, descending colon and finally to the rectosigmoid portions of the colon. Retroflexion maneuver was performed. Prep was good. The risks benefits and alternatives of the procedure explained to the patient in detail and informed consent is obtained.A GIF Olympus video scope was inserted into the patient's mouth and hypopharynx ,the esophagus is identified intubated and insufflated, the scope was then advanced through the esophagus stomach and duodenum, retroflexion maneuver is done, the esophagus stomach and first and second portions of the duodenum examined PREOPERATIVE DIAGNOSIS: Abdominal pain rule out Crohn's disease. GERD, dyspepsia POSTOPERATIVE DIAGNOSIS: Terminal ileitis status post biopsy rule out Crohn's disease. Internal hemorrhoids. Gastritis status post biopsy rule out Helicobacter pylori OPERATION: Colonoscopy with biopsy. EGD with biopsy SURGEON: NELIDA KOTHARI ANESTHESIA: LMAC TISSUE REMOVED OR ALTERED: As noted above. COMPLICATIONS: None. ESTIMATED BLOOD LOSS: None. INTRAOPERATIVE FINDINGS: As noted above. PROCEDURE: Patient tolerated the procedure well. No immediate postprocedure complications are noted. Patient discharged in good condition. Discharge date 01/13/2018. Discharge diet: Regular. Discharge activity: Regular. 2-3-week follow-up to discuss findings. Patient is instructed to call the office or proceed to the emergency room should there be any further problems or questions. We will wait on the pathology.
== END 2018-01-13 10:45 | disposition home or self-care (01) ==
LOC: END 09:20
PROVIDERS: ATTEND Internal Medicine Gastroenterology
DX: K29.50 Unspecified chronic gastritis without bleeding (principal); K52.9 Noninfective gastroenteritis and colitis, unspecified; K64.8 Other hemorrhoids; K21.9 Gastro-esophageal reflux disease without esophagitis; R73.03 Prediabetes; E78.2 Mixed hyperlipidemia; E66.01 Morbid (severe) obesity due to excess calories; Z79.899 Other long term (current) drug therapy; Z68.42 Body mass index [BMI] 45.0-49.9, adult
CPT/HCPCS: 43239; 45380; 88342 ×2; 88305 ×2; J2704; 813

== ENCOUNTER 2020-08-04 23:23 | Emergency (ER) | payer BC, MEDICAID ==
[2020-08-05] MEDS ORDERED: METHYLPREDNISOLONE INJ 125 MG/2 ML SDV IV ONE (00:34)
[2020-08-05] MEDS ORDERED: HYDROMORPHONE HCL INJ/PF 2 MG/ML AMPULE IV ONE (00:34)
[2020-08-05] MEDS ORDERED: METAXALONE 800 MG TABLET PO ONE (00:34)
--- NOTE | 2020-08-05 00:34 | ER Document Report ---
ED General - General Chief Complaint: Back Injury Stated Complaint: BACK PAIN Time Seen by Provider: 08/05/20 00:22 Primary Care Provider: RASHIDA BUI MD [ACTIVE STAFF] - Follow up as needed Mode of Arrival: Wheelchair Information source: Patient, Relative TRAVEL OUTSIDE OF THE [place] IN LAST 30 DAYS: No - HPI Notes: This patient is a 34-year-old female with a history of previous back pain who stumbled over a set of steps that they have next to the bed for the little dog to climb up on the bed day before yesterday and wrenched her back. She noted some pain in the lower lumbar region left greater than right. She thought she could work through it with [id number] medications but it is gradually worsened over the last 36 hours to the point now where it hurts her too much to even sit up or move around. She denies any bowel or bladder changes. She denies any saddle anesthesia. She has no radicular symptoms going down either leg. She has no foot drop. She is never had any back surgery. She did have an MRI about a year ago which showed some degenerative disc disease but was otherwise unremarkable. She is otherwise in her usual state of health. She denies . She has PCOS and has not had a menstrual period many years. She is also on control for this. - Related Data Allergies/Adverse Reactions: Penicillins Allergy (Verified 01/13/18 09:13) Past Medical History - General Information source: Patient - Social History Smoking Status: Current Every Day Smoker Family History: None - Medical History Medical History: Other Notes: Reviewed. - Past Medical History Cardiac Medical History: Reports: Hx Hypercholesterolemia, Hx Hypertension Denies: Hx Coronary Artery Disease, Hx Heart Attack Pulmonary Medical History: Denies: Hx Asthma, Hx Bronchitis, Hx COPD, Hx Pneumonia Neurological Medical History: Denies: Hx Cerebrovascular Accident, Hx Seizures Renal/ Medical History: Denies: Hx Peritoneal Dialysis Musculoskeletal Medical History: Denies Hx Arthritis Psychiatric Medical History: Reports: Hx Depression - Immunizations Hx Diphtheria, Pertussis, Tetanus Vaccination: Yes Review of Systems - Review of Systems Notes: All other systems reviewed are negative or noncontributory except as noted in the present illness. Physical Exam - Vital signs Vitals: Temp Resp BP Pulse Ox 98.7 F 16 134/65 H 97 08/04/20 23:26 08/04/20 23:26 08/04/20 23:26 08/04/20 23:26 - Notes Notes: General: Obese acutely uncomfortable female in obvious pain. Vital signs and nursing documentation are reviewed. Lungs: Clear to auscultation all ho. Heart: Regular rate and rhythm no murmur. Abdomen: Obese soft nontender no masses organomegaly. Extremities: Without clubbing cyanosis or edema. Skin: Warm moist good turgor no rashes. Back: Difficult to examine as the patient is unable to sit up but she has palpable tenderness bilaterally in the lower lumbar region. Neuro: Patient has intact sensation to light touch in all dermatomes. Reflexes are 1+ and symmetrical at patellar's and Achilles. She has strong dorsiflexion and plantar flexion of both toes and feet. There is no focal weakness in either extremity. Course - Re-evaluation Re-evalutation: 08/05/20 03:16 Patient was medicated with Dilaudid, Solu-Medrol, and p.o. Valium. Over the course the next hour and a half or so her pain improved somewhat she can move around the bed actually dangle at the bedside take few steps in the room. She and her were comfortable with her going home. We will put her on a Medrol Dosepak, some Valium p.o. on a as needed basis for muscle spasm, and short course of hydrocodone acetaminophen. I recommended follow-up with primary care in 3 to 5 days if unimproved to talk about physical therapy and or further imaging. - Vital Signs Vital signs: Temp Pulse Resp BP Pulse Ox 98.7 F 16 116/43 L 97 08/04/20 23:26 08/04/20 23:26 08/05/20 01:01 08/05/20 01:08 - Laboratory Results Critical Laboratory Results Reviewed: No Critical Results - Radiology Results Critical Radiology Results Reviewed: No Critical Results Discharge - Discharge Clinical Impression: Acute low back pain Qualifiers: Back pain laterality: bilateral Sciatica presence: without sciatica Qualified Code(s): M54.5 - Low back pain Condition: Stable Disposition: HOME, SELF-CARE Instructions: Low Back Pain ([facility]), Oral Narcotic Medication ([facility]) Additional Instructions: Rest at home but do as much activity as you feel comfortable doing. Follow-up with your primary care doctor in 3 to 5 days for recheck. Prescriptions for a Medrol Dosepak, some Valium as a muscle relaxer, and some hydrocodone acetaminophen of all been sent to your pharmacy. Please pick these up and take them according to label directions. Return to the emergency department if any concerning symptoms develop. Prescriptions: Methylprednisolone [Medrol Dosepack (4 mg/Tab) 21 Tab/Dosepak] 4 mg PO ASDIR PRN #21 tab.ds.pk PRN Reason: Hydrocodone/Acetaminophen [[place] 5-325 mg Tablet] 1 tab PO Q6H PRN #12 tablet PRN Reason: Pain Diazepam [Valium] 5 mg PO BID PRN #10 tablet PRN Reason: Muscle Spasms Referrals: RASHIDA BUI MD [ACTIVE STAFF] - Follow up as needed
[2020-08-05] MEDS ORDERED: DIAZEPAM 5 MG TABLET PO ONE (01:01)
[2020-08-05 03:47] VITALS: BP 122/67
== END 2020-08-05 03:45 | disposition home or self-care (01) ==
LOC: ER 23:23
DX: M54.5 Low back pain (principal); F17.200 Nicotine dependence, unspecified, uncomplicated; E66.9 Obesity, unspecified; E78.00 Pure hypercholesterolemia, unspecified; I10 Essential (primary) hypertension; Z88.0 Allergy status to penicillin; Z79.3 Long term (current) use of hormonal contraceptives
CPT/HCPCS: 99284; 96374; 96375; J2930; J1170